=== PATIENT | female | born 1960 | race Caucasian/White ===

== ENCOUNTER 2018-05-11 01:10 | Outpatient (CLI) | payer BC, MEDICAID, SELFPAY ==
[2018-05-11 12:02] LABS: ALT 36 U/L (12-78); AST 23 U/L (15-37); Albumin 3.7 g/dL (3.4-5.0); Alkaline Phosphatase 81 U/L (46-116); Anion Gap 8.3 mmol/L (3-11); BUN 12 mg/dL (7-18); Bilirubin, Total 0.4 mg/dL (0.2-1.0); CO2 26.7 mmol/L (21.0-32.0); CREATININE 0.86 mg/dL (0.55-1.02); Calcium 8.9 mg/dL (8.5-10.1); Chloride 106 mmol/L (98-107); Cholesterol 217 mg/dL (50-200); Glucose 95 mg/dL (70-100); HDL Cholesterol 42 mg/dL (40-60); LDL CHOLESTEROL 130 mg/dL (<100); Potassium 4.1 mmol/L (3.5-5.1); Sodium 141 mmol/L (136-145); Total Protein 7.5 g/dL (6.4-8.2); Triglyceride 247 mg/dL (30-150); Vitamin B12 477 pg/mL (193-986)
== END 2018-05-11 01:30 ==
DX: Z00.00 Encounter for general adult medical examination without abnormal findings (principal); E53.8 Deficiency of other specified B group vitamins; F32.9 Major depressive disorder, single episode, unspecified; G43.909 Migraine, unspecified, not intractable, without status migrainosus; E78.2 Mixed hyperlipidemia
CPT/HCPCS: 36415; 80053; 80061; 83721; 82607

== ENCOUNTER 2018-08-16 07:18 | Day surgery (SDC) | payer BC, SELFPAY ==
--- NOTE | 2018-08-16 06:13 | COLE_ITS ---
Date of service: 08/16/18 Time of Service: 08:14 Colonoscopy Report Date of procedure: 08/16/18 Pre-op diagnosis general: Colon Cancer Screening Post-op diagnosis procedure note: other (Transverse polyp) Procedure: Colonoscopy Surgeon: Harriet Enciso Anesthesia proc note operative: other (General/ ASA 2/Sara Thompson, NAYA ) Estimated blood loss (mL): 3 Pathology: other (Transverse polyp) Complications: None Disposition: same day Indications: Mrs. Dominique is a pleasant 58 year old female seen in the office for a screening colonoscopy. This will be her first colonoscopy. She has no family history of colon cancer. Risks, benefits and complications have been reviewed. Complications include but are not limited to bleeding, pain, perforation, missed small lesion/polyp, sore throat, aspiration and adverse reaction to the me dications. Questions were entertained and answered to their satisfaction and they wished to proceed. No guarantees were given or implied. Prep: Miralax/Dulcolax Procedure Start Time: 08:14 Procedure End Time: 08:52 Retraction Time: 24 minutes Findings: One pedunculated polyp in the distal transverse colon Procedure Description: After informed consent was obtained the patient was taken to the procedure room and placed in a left decubitous position. Monitors were applied and a time out was done. The patients name, date of , procedure, allergies to medications and metal in their body was reviewed. The patient was then sedated. Once sedated and comfortable a rectal exam was done. External exam was normal. Internal exam revealed a normal sphincter tone and no palpable masses. The scope was then introduced and retro-flexed. No internal hemorrhoids, polyps or masses were identified. The scope was then advanced to the cecum without difficulty. The TI and appendiceal orifice were identified. The prep was adequate. The scope was then slowly retracted over 24 minutes back into the rectum. Polyps were removed in the distal transverse colon with a snare. No diverticulosis was noted. The scope was removed and the patient was woken up and taken back to Same day surgery in stable condition. The patient tolerated the procedure well and there were no immediate complications. Follow up: The patient should follow up in 3-5 years unless they develop changes in bowel habits or other new gastrointestinal complaints.
--- NOTE | 2018-08-16 06:13 | W.PM.DSUDISC ---
Discharge Plan Disposition Patient Disposition: HOME Condition: Good Discharge Details Reason For Visit: Colon Cancer Screening Attending Provider: Harriet Enciso Primary Care Provider: Arcelia Jones Home Meds and New Rx's Prescriptions: Continued Excedrin Migraine 1 EACH tablet 1 - 2 tab PO PRN RF: 0 fluoxetine [Prozac] 40 mg capsule 1 cap PO DAILY Qty: 90 RF: 3 Monoject Syringe 3 mL 21 gauge x 1 syringe 1 ea IM monthly Qty: 12 RF: 1 estradiol 1 mg tablet 1 mg PO DAILY Qty: 90 RF: 4 cyanocobalamin (vitamin B-12) 1,000 mcg/mL solution 1,000 mcg IM MONTHLY Qty: 3 RF: 4 Discontinued polyethylene glycol 3350 17 gram/dose powder 238 g PO ONCE Qty: 238 RF: 0 bisacodyl [Dulcolax (bisacodyl)] 5 mg tablet,delayed release (DR/EC) 5 mg PO ONCE Qty: 4 RF: 0 Discharge Instructions Instructions: Colonoscopy (DC), Colorectal Polyps (DC) Additional Instructions: Findings: One polyp Follow up: 3-5 years Please call if you develop: fevers >101.5 Nausea or Vomiting Abdominal pain that is not transient DAY SURGERY UNIT POST COLONOSCOPY INSTRUCTIONS 1. Because there will be medication in your system for the next 24 hours, you may feel a little sleepy. Your coordination will be affected. Therefore: a. Do not drive or operate dangerous equipment for 24 hours. b. Do not drink alcohol beverages for 24 hours (not even beer). c. Plan to go home and rest for the day. 2. Generally there are no restrictions on your activity after a day or so has gone by, but you may feel a bit fatigued for a few days. 3 After you arrive home you may have a light meal and return to a normal diet as you can tolerate it without feeling sick to your stomach. 4. After surgery, you may feel pain or discomfort. This should be only transient, but if it persists please contact your doctor. 5. If there are any questions regarding the findings of your procedure, please feel free to contact your doctor. 6. If you are unable to contact your doctor with a problem, contact the hospital at [phone]. 7. Continue all your regular medications unless directed otherwise. I understand the above instructions and have no questions. Signature of Patient or Responsible Adult Escort Date/Time Name of Responsible Adult Escort Signature of Nurse Date/Time Activity:: Activity as Tolerated Diet:: As Tolerated Discharge Orders Discharge Orders: Discharge Order (Routine); Ordered 08/16/18 Ordered By: Harriet Enciso DS: Diagnosis Discharge Diagnosis (1) S/P colonoscopy: Status: Acute (2) Colorectal polyps: Status: Acute
[2018-08-16 07:27] VITALS: BP 127/82; PULSE 71; RESP 16; TEMP 36.7; O2SAT 95
[2018-08-16] MEDS: Lactated Ringers 1,000 ML 80 ML IV (07:58)
--- NOTE | 2018-08-16 08:40 | BOWEL_PTH ---
PATIENT: Chantal Dominique LOC: [facility] U#:[id number] AGE/SX: 58/F ROOM: RE08/16/[address]: Harriet Enciso MD : 1960 BED: DIS: 08/16/2018 SPEC #: [id number] RECD: 08/16/18 12:43 STATUS: ANGELINA REQ #: [id number] JACEK: 08/16/18 08:[address]: Harriet Enciso DEPT: Surgical Specimen RECD BY: Kenia Springer ENTERED: 08/16/18 12:44 SP TYPE: Bowel OTHR DR: Arcelia Jones APRN Tissues: 1 - BIOPSY BOWEL Procedures: GROSS AND MICRO LEVEL 4 Comments: [id number]
[2018-08-16 09:31] VITALS: BP 124/76; PULSE 70; RESP 16; TEMP 36; O2SAT 96
== END 2018-08-16 10:30 | disposition home or self-care (01) ==
LOC: SUR 07:19
PROVIDERS: Visit Provider Surgery
PROC: 0DJD8ZZ Inspection of Lower Intestinal Tract, Via Natural or Artificial Opening Endoscopic (ICD-10-PCS; CPT 45378; principal; 2018-08-16 08:30)
DX: Z12.11 Encounter for screening for malignant neoplasm of colon (principal); K63.5 Polyp of colon
CPT/HCPCS: 45385; 88305

== ENCOUNTER 2019-04-27 01:20 | Outpatient (CLI) | payer BC, MEDICAID, SELFPAY ==
--- NOTE | 2019-04-27 07:49 | DI.MAMMO_ITS ---
EXAM: MAMMO SCREENING CLINICAL HISTORY: screening TECHNIQUE: Mammograms were interpreted according to the usual protocol including computer analysis w Qloud CAD system, tomosynthesis and C-view imaging. COMPARISON: . 2012 to 2018 FINDINGS: The breasts are composed of heterogeneously dense fibroglandular densities, Breast Density category C . No suspicious masses or suspicious microcalcifications are seen. No skin thickening or abnormal axillary lymph nodes are seen. There has been no significant change from prior exams. IMPRESSION: BIRADS Category 1, negative mammogram. Yearly screening mammography is recommended. BREAST DENSITY: The mammogram demonstrates the patient's breast tissue is dense. Dense breast tissue is very common and is not abnormal but dense breast tissue can make it harder to find cancer on a ma mmogram. Also, dense breast tissue may increase breast cancer risk. This information about the result of the mammogram report was provided to the patient to raise their awareness. Use this report when y ou speak with the patient about their risks for breast cancer, which includes their family history. A t that time, you may recommend additional screening tests (Ultrasound or MRI) as they might be useful based on their risk. A negative radiographic report should not delay biopsy if a dominant or clinically suspicious mass is present. Up to ten percent of cancers are not identified on mammography. A negative report may reinforce clinical impression. Adenosis and dense breasts may obscure an underlying neoplasm. False positive reports average 6 to 10%.
== END 2019-04-27 01:40 ==
DX: Z12.31 Encounter for screening mammogram for malignant neoplasm of breast (principal)
CPT/HCPCS: 77063; 77067

== ENCOUNTER 2020-02-08 01:59 | Outpatient (CLI) | payer BC, SELFPAY ==
[2020-02-09 15:30] LABS: SARS-CoV-2 RNA Not Detected (NotDetected); SARS-CoV-2 RNA Source Nasal/Nares
== END 2020-02-08 02:19 ==
PROVIDERS: Visit Provider Family Medicine
DX: R05 Cough (principal)
CPT/HCPCS: U0003

== ENCOUNTER 2020-03-06 03:08 | Outpatient (CLI) | payer BC, SELFPAY ==
[2020-03-06 20:29] LABS: COVID-19 RT-PCR UVMMC Result Negative (Negative)
== END 2020-03-06 03:28 ==
DX: Z20.828 Contact with and (suspected) exposure to other viral communicable diseases (principal)
CPT/HCPCS: U0003

== ENCOUNTER 2020-06-26 01:26 | Outpatient (CLI) | payer BC, SELFPAY ==
--- NOTE | 2020-06-26 11:19 | DI.MAMMO_ITS ---
EXAM: MG MAMMO SCREENING CLINICAL HISTORY: screening,Z12.39 TECHNIQUE: Bilateral full field digital CC and MLO mammographic images were obtained with 3D tomosyn thesis and utilizing computer aided detection (CAD). COMPARISON: Available for comparison. FINDINGS: Masses/Architectural Distortion: None seen. There is a biopsy clip again seen in the right breast. Microcalcifications: No suspicious pleomorphic-type are seen. Skin Thickening/Nipple Retraction: None. IMPRESSION: 1. No significant interval change with no specific features of malignancy noted. 2. Unless there is more urgent need, screening mammography is recommended, as per [employer] guidelines. BI-RADS Category 1 - Negative Breast Density - Category C - Heterogeneously dense Breast density category C or D implies that the patient has dense breast tissue. Dense breast tissue is very common and is not abnormal but dense breast tissue can make it harder to find cancer on a ma mmogram. Also, dense breast tissue may increase their breast cancer risk. This information about the result of the mammogram report was provided to the patient to raise their awareness. Use this report when you speak with the patient about their risks for breast cancer, which includes their family hist ory. At that time, you may recommend for more screening tests (Ultrasound or MRI) as they might be us eful based on their risk. A negative radiographic report should not delay biopsy if a dominant or clinically suspicious mass is present. Up to ten percent of cancers are not identified on mammography. A negative report may reinforce clinical impression. Adenosis and dense breasts may obscure an underlying neoplasm. False positive reports average 6 to 10%. Patient will receive a letter notifying them of these results.
== END 2020-06-26 01:46 ==
DX: Z12.31 Encounter for screening mammogram for malignant neoplasm of breast (principal)
CPT/HCPCS: 77063; 77067

== ENCOUNTER 2020-07-03 02:35 | Outpatient (CLI) | payer BC, SELFPAY ==
[2020-07-03 13:32] LABS: ALT 32 U/L (14-59); AST 23 U/L (15-37); Albumin 3.8 g/dL (3.4-5.0); Alkaline Phosphatase 78 U/L (46-116); Anion Gap 5.4 mmol/L (3-11); BUN 15 mg/dL (7-18); Bilirubin, Total 0.3 mg/dL (0.2-1.0); CO2 28.6 mmol/L (21.0-32.0); CREATININE 0.9 mg/dL (0.55-1.02); Calculated LDL 122 mg/dL (<100); Chloride 106 mmol/L (98-107); Cholesterol 226 mg/dL (<200); Glucose 99 mg/dL (74-106); HDL Cholesterol 37 mg/dL (40-60); Potassium 4.8 mmol/L (3.5-5.1); Sodium 140 mmol/L (136-145); Total Protein 7.7 g/dL (6.4-8.2); Triglyceride 335 mg/dL (<150); Vitamin B12 234 pg/mL (193-986)
== END 2020-07-03 02:36 | disposition home or self-care (01) ==
LOC: LOS 02:36
DX: Z00.00 Encounter for general adult medical examination without abnormal findings (principal); E78.5 Hyperlipidemia, unspecified; E53.8 Deficiency of other specified B group vitamins
CPT/HCPCS: 36415; 80053; 80061; 82607

== ENCOUNTER 2020-08-07 12:04 | Emergency (ER) | payer BC, SELFPAY ==
[2020-08-07 12:11] VITALS: BP 129/74; PULSE 69; RESP 18; TEMP 36.2; O2SAT 98
--- NOTE | 2020-08-07 12:26 | W.ED.GENAD ---
Discharge Plan Disposition Patient Disposition: HOME Condition: Stable Discharge Details Clinical Impression: Depression Primary Care Provider: Arcelia Jones ED Provider: Edwin Rico Home Meds and New Rx's Prescriptions: Continued multivitamin with iron Tablet 1 tab PO DAILY RF: 0 fluoxetine [Prozac] 40 mg capsule 80 mg PO DAILY Qty: 90 RF: 0 Excedrin Migraine 1 EACH tablet 1 - 2 tab PO PRN RF: 0 cyanocobalamin (vitamin B-12) 1,000 mcg/mL solution 1,000 mcg IM MONTHLY Qty: 3 RF: 4 estradiol 1 mg tablet 1 mg PO DAILY Qty: 90 RF: 4 (DME) Easy Touch SheathLock Syrg-Ndl 3 mL 25 gauge x 1 syringe See Rx Instructions .ROUTE .MEDSUPPLY Qty: 12 RF: 1 Discharge Instructions Instructions: Depression (ED) Additional Instructions: Followup with Dr Montelongo on Thursday at 11:20 am. Followup with [facility] daily as discussed with them. Return for any acute concerns. Medical Decision Making <Spike Jackson MD - Last Filed: 08/07/20 13:39> 60 yo female with hx of depression who had her fluoxetine increased from 40mg to 80mg by her pcp earlier this month for depression comes in with worsening depression. She states it started to worsen about 4 weeks ago and was due to some write ups that happened at work. She denies specific plans of self harm but has had thoughts of wanting to harm herself. HAsn't done anything to harm herself. Denies alcohol or drug use. She is speaking clearly, no focal motor deficits on exam, calm and cooperative though with flat affect. Suspect worsening depression and unlikely underlying medical cause such as endocrine or infectious etiology. Will obtain screening labs and if negative consult mental health blood work unremarkable, has not provided urine sample but is now medically clear to speak with mental health. She is eating in no distress on repeat exam. Differential Diagnosis Differential Diagnosis: depression, sucidial thoughts Lab Data Lab results reviewed: Yes I reviewed the patient's lab results. ECG Data Attestation: I personally reviewed and interpreted this ECG (s) as follows: Prior ECG tracings: not available for review Interpretation: sinus rhythm, rate of 63, no acute st t wave ischemic findings <Edwin Rico MD - Last Filed: 08/07/20 16:32> Received signout from Dr. Jackson. Patient evaluated by crisis team. She initially consider pursuing voluntary inpatient treatment. Subsequently a plan for outpatient safety was made with the patient, her roommate, and the mental health worker. Roommate will hold the patient's medications and give her 1 day at a time dosing. Patient will follow up with mental health services daily. She will follow-up with Dr. Montelongo on Thursday 11:20 AM. She is stable and appropriate for discharge to home. Lab Data Lab results reviewed: Yes I reviewed the patient's lab results. Labs: Laboratory Results - last 24 hr 08/07/20 08/07/20 08/07/20 12:30 12:30 13:12 WBC 5.91 RBC 4.77 Hgb 13.9 Hct 39.6 MCV 83.0 MCH 29.1 MCHC 35.1 RDW 12.2 Plt Count 217 MPV 9.6 Immature Gran % 0.2 Neutrophils % 58.6 Lymphocytes % 27.6 Monocytes % 13.4 Eosinophils % 0.0 Basophils % 0.2 Nucleated RBC % 0 Absolute Neutrophils 3.47 Absolute Lymphocytes 1.63 Absolute Monocytes 0.79 Absolute Eosinophils 0.00 Absolute Basophils 0.01 Sodium 140 Potassium 3.9 Chloride 104 Carbon Dioxide 25.7 Anion Gap 10.3 BUN 11 Creatinine 0.9 Estimated GFR/1.73 m2 >= 60.00 Glucose 88 Calcium 9.1 Total Bilirubin 0.3 AST 27 ALT 30 Alkaline Phosphatase 81 Total Protein 8.2 Albumin 3.8 TSH 2.62 Urine Color Urine Clarity Urine pH Ur Specific [place] Urine Protein Urine Ketones Urine Blood Urine Nitrite Urine Bilirubin Urine Urobilinogen Ur Leukocyte Esterase Urine Glucose Urine Opiates Screen Negative Urine Methadone Screen Negative Acetaminophen < 2 Ur Barbiturates Screen Negative Ur Tricyclics Screen Negative Ur Amphetamines Screen Negative U Benzodiazepines Scrn Negative Urine Cocaine Screen Negative Ur THC Screen Negative Ethyl Alcohol < 3.0 COVID-19 Source SARS-CoV-2 (PCR) 08/07/20 08/07/20 13:12 13:17 WBC RBC Hgb Hct MCV MCH MCHC RDW Plt Count MPV Immature Gran % Neutrophils % Lymphocytes % Monocytes % Eosinophils % Basophils % Nucleated RBC % Absolute Neutrophils Absolute Lymphocytes Absolute Monocytes Absolute Eosinophils Absolute Basophils Sodium Potassium Chloride Carbon Dioxide Anion Gap BUN Creatinine Estimated GFR/1.73 m2 Glucose Calcium Total Bilirubin AST ALT Alkaline Phosphatase Total Protein Albumin TSH Urine Color Yellow Urine Clarity Clear Urine pH 5.5 Ur Specific [place] >= 1.030 H Urine Protein Negative Urine Ketones 15 H Urine Blood Negative Urine Nitrite Negative Urine Bilirubin Negative Urine Urobilinogen 0.2 Ur Leukocyte Esterase Negative Urine Glucose Negative Urine Opiates Screen Urine Methadone Screen Acetaminophen Ur Barbiturates Screen Ur Tricyclics Screen Ur Amphetamines Screen U Benzodiazepines Scrn Urine Cocaine Screen Ur THC Screen Ethyl Alcohol COVID-19 Source Nasal/nares SARS-CoV-2 (PCR) Negative HPI <Spike Jackson MD - Last Filed: 08/07/20 13:39> General Mode of arrival: ambulatory. Date/Time Provider Initiated Documentation: 08/07/20 12:14. Limitations to Documentation: no limitations. Information obtained by: patient. History of Present Illness 60 year old F presents to the emergency department with the chief complaint of depressed, described as moderate, Patient started experiencing this week(s) (4) and it has been constant. No relieving factors improve symptom(s), No exacerbating factors reported . Patient did receive the following treatments prior to arrival, none Related Data Home Medications Medication Instructions Recorded Confirmed Excedrin Migraine 1 - 2 tab PO PRN 04/06/14 08/07/20 multivitamin with iron 1 tab PO DAILY 06/06/19 08/07/20 cyanocobalamin (vitamin B-12) 1,000 mcg IM MONTHLY #3 ml 05/25/20 08/07/20 1,000 mcg/mL injection solution estradiol 1 mg tablet 1 mg PO DAILY #90 tab 05/25/20 08/07/20 syringe with needle, safety 3 mL #12 each 05/25/20 06/11/20 25 gauge x 1 fluoxetine 40 mg capsule 80 mg PO DAILY #90 cap 07/18/20 08/07/20 Previous Rx's Medication Instructions Recorded cyanocobalamin (vitamin B-12) 1,000 mcg IM MONTHLY #3 ml 05/25/20 1,000 mcg/mL injection solution estradiol 1 mg tablet 1 mg PO DAILY #90 tab 05/25/20 syringe with needle, safety 3 mL #12 each 05/25/20 25 gauge x 1 fluoxetine 40 mg capsule 80 mg PO DAILY #90 cap 07/18/20 Allergies Allergy/AdvReac Type Severity Reaction Status Date / Time No Known Allergies Allergy Verified 08/07/20 12:13 General Stated Complaint: PsychEval RUPERTO: 2 Review of Systems <Spike Jackson MD - Last Filed: 08/07/20 13:39> All systems reviewed & are unremarkable except as noted in HPI and below Constitutional Constitutional: Denies chills, Denies fever(s) and Denies weakness Cardiovascular Cardiovascular: Denies chest pain and Denies dyspnea Respiratory Respiratory: Denies cough and Denies dyspnea Gastrointestinal Gastrointestinal: Denies abdominal pain, Denies nausea and Denies vomiting Musculoskeletal Musculoskeletal: Denies joint swelling Neurologic Neurologic: Denies weakness PFS <Spike Jackson MD - Last Filed: 08/07/20 13:39> Medical History (Updated 08/07/20 @ 12:31 by Spike Jackson MD) Allergic rhinitis Colorectal polyps (~08/16/18) Depression Depressive disorder Edema LE edema Gender identity disorder (07/19/13) 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 Father , 74 Diabetes Essential hypertension Neoplasm SYSTEMIC Stroke During surgery for AAA Brother No problems noted. Maternal Grandfather , 84 Essential hypertension Heart disease Paternal Grandfather Lung cancer Maternal Grandmother , 76 Heart disease Paternal Grandmother Heart disease ?? Son Asthma Maternal Aunt Neoplasm Asthma Social History Smoking/Tobacco Use Status: Never Smoking risk assessment performed?: Yes Alcohol Intake: current Alcohol Intake frequency: holidays/special occasions only Alcohol type: wine Drug use: Never Substance use type: does not use Caregiver/Support person: No Household members: none Communication Needs: None Do you need help understanding health information?: Rarely current occupation: CAREGIVER Pets and animals: Yes Pets and animals: cat(s) Sexually active: No Do you think of yourself as: lesbian/horne/homosexual Current gender identity: female What is your relationship status?: How often do you talk on the phone with friends or family?: decline to answer How often do you get together with friends or relatives?: decline to answer How often do you attend jewish or scientologist services?: decline to answer Do you belong to any clubs or organized social groups?: decline to answer Panel score (0-1 are the most socially isolated patients): 0 What type of physical activity do you participate in: walking Duration: < 15 minutes/day Frequency: 3-4 times per week Saskia/Scientology: Other Special saskia needs: No Seatbelt use: always Helmet use: Yes Helmet use: never Drive intox or ride 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 Do you feel safe at home: Yes Do you feel safe in your relationship?: Yes Exam <Spike Jackson MD - Last Filed: 08/07/20 13:39> Const General: no acute distress Orientation: alert HENMT Head: normal to inspection Ears: external ears normal General nose exam: external nose normal Mouth: moist mucous membranes Eyes General: appearance normal, both eyes and all related structures Neck Neck: normal visual inspection Resp Effort & Inspection: normal respiratory effort and able to speak in complete sentences Cardio Rate: regular rate Skin General skin exam: no rashes or lesions noted Neuro General: patient alert and patient oriented x3 Extrem General: normal to inspection Psych Appearance: grossly normal Course <Spike Jackson MD - Last Filed: 08/07/20 13:39> Vital Signs Vital signs: Vital Signs Temperature 36.2 C L 08/07/20 12:11 Pulse 69 08/07/20 12:11 Respiratory Rate 18 08/07/20 12:11 Blood Pressure 129/74 08/07/20 12:11 Pulse Oximetry 98 08/07/20 12:11 Temperature 36.2 C L 08/07/20 12:11 Temperature Source Skin 08/07/20 12:11 Pulse 69 08/07/20 12:11 Respiratory Rate 18 08/07/20 12:11 Blood Pressure 129/74 08/07/20 12:11 Blood Pressure Position Sitting 08/07/20 12:11 Pulse Oximetry 98 08/07/20 12:11 Oxygen Delivery Method Room Air 08/07/20 12:11 Oxygen Flow Rate 0 08/07/20 12:11 Pain Level 0 08/07/20 12:11 Sign Out <Spike Jackson MD - Last Filed: 08/07/20 13:39> Sign Out Data: Sign Out Comment: Depression with SI, awaiting mental health evaluation Last updated by Spike Jackson MD at 08/07/20 14:24
--- NOTE | 2020-08-07 12:45 | RT.EKG_ITS ---
APPROVED REPORT Exam: Resting ECG Reason for Exam: medical screening Patient Location: E HR:63 bpm ECG Measurements Heart Rate 63 AXIS MA 180 P 55 QRSd 112 QRS 9 QT 459 T 27 QTc 470 Conclusion Sinus rhythm...normal P axis, V-rate 60- 99
[2020-08-07 12:56] LABS: Abs Immature Grans 0.01 10^3/uL (0.0-0.06); Absolute Basophil Count 0.01 10^3/uL (0.0-0.2); Absolute Lymphocyte Count 1.63 10^3/uL (1.2-3.4); Absolute Monocyte Count 0.79 10^3/uL (0.1-0.8); Absolute Neutrophil Count 3.47 10^3/uL (1.2-6.7); Basophils % 0.2; HCT 39.6 % (36.0-46.0); HGB 13.9 g/dL (11.2-15.7); Immature Grans % 0.2; Lymphocytes % 27.6; MCH 29.1 pg (27.0-33.0); MCHC 35.1 % (32.0-36.0); MPV 9.6 fL (8.0-11.0); Monocytes % 13.4; Neutrophils % 58.6; Nucleated RBC 0 %; Platelet Count 217 10^3/uL (130-400); RBC 4.77 10^6/uL (3.93-5.22); RDW 12.2 % (11.7-14.6); RDW-SD 37.3 fL; WBC 5.91 10^3/uL (4.4-10.8)
[2020-08-07 13:19] LABS: ALT 30 U/L (14-59); AST 27 U/L (15-37); Albumin 3.8 g/dL (3.4-5.0); Alkaline Phosphatase 81 U/L (46-116); Anion Gap 10.3 mmol/L (3-11); BUN 11 mg/dL (7-18); Bilirubin, Total 0.3 mg/dL (0.2-1.0); CO2 25.7 mmol/L (21.0-32.0); CREATININE 0.9 mg/dL (0.55-1.02); Calcium 9.1 mg/dL (8.5-10.1); Chloride 104 mmol/L (98-107); Glucose 88 mg/dL (74-106); Potassium 3.9 mmol/L (3.5-5.1); Sodium 140 mmol/L (136-145); TSH (W/Ref FT4) 2.62 uIU/mL (0.36-3.74); Total Protein 8.2 g/dL (6.4-8.2)
[2020-08-07 13:30] LABS: Source Nasal/Nares
[2020-08-07 13:35] LABS: Acetaminophen < 2 ug/mL (10-30); ETHANOL BLOOD < 3.0 mg/dL (<3)
[2020-08-07 13:38] LABS: *AMPHETAMINES SCREEN URINE Negative (Negative); *BARBITURATES SCREEN URINE Negative (Negative); *BENZODIAZEPINES SCREEN URINE Negative (Negative); Cannabinoids THC Negative (Negative); Cocaine Screen,Urine Negative (Negative); METHADONE URINE SCREEN Negative (Negative); OPIATES URINE SCREEN Negative (Negative)
[2020-08-07 13:39] LABS: Tricyclic Antidepressants Negative (Negative)
[2020-08-07 13:49] LABS: Bilirubin Negative (Negative); Blood Negative (Negative); Clarity Clear (Clear); Glucose Negative (Negative); Ketones 15 mg/dL (Negative); Leukocyte Esterase Negative (Negative); Nitrite Negative (Negative); Specific Gravity >= 1.030 (1.005-1.025); Urobilinogen 0.2 EU/dL (Up TO 0.2); pH 5.5 (5-8)
[2020-08-07 15:03] LABS: COVID-19 PCR Negative (Negative)
--- NOTE | 2020-08-07 16:30 | PDOC.MHCN ---
Date of service: 08/07/20 Time of Service: 16:30 Mental Health Crisis Note Presenting Issue How did you arrive at the ED and why did you come: Pt arrived today on her own due to increase in symptoms of depression and SI. Precipitating Factors Pt denied SI however, has been researching ways. She reported in 2013 she had gone to a store and purchased all she needed to, to cook up a toxic gas as the means to end her life by suicide. She self reported her risk level this am at a 8/10 and currently a 6/10. No delusions are observed. Disposition BEHAVIOR: Pt is cooperative and engaged. She is unsure of her protective factors and is seeking to get back in counseling. EYE CONTACT: Good MOOD: Depressed Pt reported I don't know. AFFECT: Flat and tearful. APPETITE: Pt reported that she does not recognize when she is hungry and then when she is really hungry she munches on junk foods. This is abnormal for her. SLEEP(trouble falling/staying asleep: Pt reported that she wants to sleep all the time and that she is sleeping more than usual. Plan Pt will do daily check in calls with [facility] until directed not to. She will turn over all medications including OTC to her roommate who will dole them out 1 day at a time. Roommate will also do daily check ins with Pt as she lives with her. She will call counselors in the community to seek a new counselor. This clinician will also do an in house referral for counseling at [facility]. This clinician outreached to Pt's PCP office and set up a new appointment for Thursday 08/10 @ 11:20am to meet with Dr. Fong regarding her medications. Signature Clinician's Name/Title: Lydia Ortiz MS, [facility] Emergency Services Clinician, [facility]
[2020-08-07 16:38] VITALS: BP 132/75; PULSE 89; RESP 16; TEMP 36.9; O2SAT 97
--- NOTE | 2020-08-07 16:44 | NUR.NOTE ---
Nursing Note: ESPINOZA CALLED TO LET HER KNOW PT HAS LEFT TO GO HOME FOR TIME REFERENCE.
--- NOTE | 2020-08-07 16:44 | PDOC.ERCMPRO ---
- If Service Date Differs Date of service: 08/07/20 Time of Service: 16:44 Care Management Progress Note Chantal is a 60 year old female who presents in the ED for passive suicidal ideation. She has a history of depression, which has been worsening over the last few weeks due to issues at work. Chantal does not currently have a therapist and she has never been psychiatrically hospitalized. Chantal is evaluated by Lydia [facility] crisis screener. She is able to enter into a safety plan, so she is being discharged home. Chantal will call [facility] daily for check-in calls. She will follow up with her PCP on Thursday at 11:20 am as scheduled. She will give all of her medications to her roommate, Angelique, for safeguarding. Angelique will dispense the medication as prescribed. Lydia also provides Chantal with a list of private therapists and Chantal will call the therapists on the list until she finds one able to accept her as a client. Chantal drove herself to the ED and is deemed safe to drive herself back home by [facility].
== END 2020-08-07 16:41 | disposition home or self-care (01) ==
PROVIDERS: Emergency Medicine; Emergency Provider Emergency Medicine
DX: F32.9 Major depressive disorder, single episode, unspecified (principal)
CPT/HCPCS: 36415; 80053; 80307; 87635; 93005; 99285; 80320; 80329; 81003; 84443; 85025; 93010; 99283

== ENCOUNTER 2021-09-10 02:56 | Outpatient (CLI) | payer MEDICAID, SELFPAY ==
[2021-09-10 13:34] LABS: ALT 32 U/L (14-59); AST 24 U/L (15-37); Albumin 3.8 g/dL (3.4-5.0); Alkaline Phosphatase 82 U/L (46-116); Anion Gap 10.4 mmol/L (3-11); BUN 12 mg/dL (7-18); Bilirubin, Total 0.5 mg/dL (0.2-1.0); CO2 22.6 mmol/L (21.0-32.0); Calcium 8.8 mg/dL (8.5-10.1); Calculated LDL 117 mg/dL (<100); Chloride 104 mmol/L (98-107); Cholesterol 227 mg/dL (<200); Estimated GFR 56.56 (mL/min/1.73m2); Glucose 106 mg/dL (74-106); HDL Cholesterol 38 mg/dL (40-60); Potassium 3.7 mmol/L (3.5-5.1); Sodium 137 mmol/L (136-145); Total Protein 7.9 g/dL (6.4-8.2); Triglyceride 364 mg/dL (<150)
[2021-09-12 12:49] LABS: TB Interpretation Negative (Negative); TB2 Ag minus Nil 0.01 IU/mL
== END 2021-09-10 02:57 | disposition home or self-care (01) ==
LOC: LOS 02:56
DX: Z00.00 Encounter for general adult medical examination without abnormal findings (principal); E78.5 Hyperlipidemia, unspecified; R63.8 Other symptoms and signs concerning food and fluid intake; R53.83 Other fatigue; F64.9 Gender identity disorder, unspecified; R41.3 Other amnesia; F32.9 Major depressive disorder, single episode, unspecified; Z11.1 Encounter for screening for respiratory tuberculosis
CPT/HCPCS: 36415; 80053; 80061; 86480

== ENCOUNTER 2021-12-13 01:23 | Outpatient (CLI) | payer MEDICAID, SELFPAY ==
[2021-12-13 13:03] LABS: HGB 14.5 g/dL (11.2-15.7); MCH 28.1 pg (27.0-33.0); MCHC 33.7 % (32.0-36.0); MCV 83 fL (80-95); MPV 10.3 fL (8.0-11.0); Platelet Count 185 10^3/uL (130-400); RBC 5.16 10^6/uL (3.93-5.22); RDW 12.5 % (11.7-14.6); WBC 4.56 10^3/uL (4.4-10.8)
[2021-12-13 14:01] LABS: ALT 37 U/L (14-59); AST 18 U/L (15-37); Albumin 3.9 g/dL (3.4-5.0); Alkaline Phosphatase 84 U/L (46-116); Anion Gap 9.4 mmol/L (3-11); BUN 10 mg/dL (7-18); Bilirubin, Total 0.5 mg/dL (0.2-1.0); CO2 23.6 mmol/L (21.0-32.0); Calcium 9.1 mg/dL (8.5-10.1); Chloride 105 mmol/L (98-107); Estimated GFR 64.49 (mL/min/1.73m2); Glucose 112 mg/dL (74-106); Potassium 3.9 mmol/L (3.5-5.1); Sodium 138 mmol/L (136-145); TSH (W/Ref FT4) 1.26 uIU/mL (0.36-3.74); Total Protein 7.7 g/dL (6.4-8.2); Vitamin B12 301 pg/mL (193-986)
== END 2021-12-13 01:24 | disposition home or self-care (01) ==
LOC: LOS 01:23
PROVIDERS: Visit Provider Nurse Practitioner Family
DX: R41.3 Other amnesia (principal)
CPT/HCPCS: 36415; 80053; 85027; 82607; 84443

== ENCOUNTER → 2023-04-24 01:19 | Outpatient (CLI) | payer MEDICAID, SELFPAY ==
--- NOTE | 2023-04-24 12:20 | DI.MAMMO_ITS ---
Exam(s) MAMMO SCREENING EXAM: MAMMO SCREENING CLINICAL HISTORY: screening,z12.39. TECHNIQUE: Bilateral full field digital CC and MLO mammographic images were obtained with 3D tomosyn thesis and utilizing computer aided detection (CAD). COMPARISON: Prior mammograms were reviewed. FINDINGS: There has been no significant change in the appearance and distribution of the fibroglandular tissue. There are no new findings in the immediate vicinity of the biopsy marker clip in the right breast. Asymmetric tissue laterally in the right breast on the CC view is unchanged prior studies. There are no new spiculated masses nor malignant appearing microcalcification groups. There is no significant architectural distortion nor skin thickening-retraction. IMPRESSION: No radiographic evidence of malignancy. BI-RADS Category 1 - Negative Breast Density - Category C - Heterogeneously dense Breast density Category C or D implies that the patient has dense breast tissue. Dense breast tissue can make it harder to find cancer on a mammogram. Dense breast tissue is also associated with an incr eased risk of breast cancer. This information about the result of the mammogram report was provided to the patient to raise their awareness. Use this report when you speak with the patient about their risks for breast cancer, which includes their family history. At that time, you may recommend additional screening tests (Ultrasoun d or MRI) as these tests may add significant information. A negative radiographic report should not delay biopsy if a dominant or clinically suspicious mass is present. Up to ten percent of cancers are not identified on mammography. A negative report may reinforce clinical impression. Adenosis and dense breasts may obscure an underlying neoplasm. False positive reports average 6 to 10%. Patient will receive a letter notifying them of these results.
== END ==
PROVIDERS: PCP Nurse Practitioner Family; Visit Provider Nurse Practitioner Family
DX: Z12.31 Encounter for screening mammogram for malignant neoplasm of breast (principal); R92.323 Mammographic fibroglandular density, bilateral breasts
CPT/HCPCS: 77063; 77067

== ENCOUNTER 2024-04-08 18:24 | Emergency (ER) | payer MEDICAID, SELFPAY ==
[2024-04-08] VITALS (28 sets, daily range): BP systolic 121–142; BP diastolic 73–87; PULSE 51–58; RESP 11–19; TEMP 36.4; O2SAT 99–100
[2024-04-08] MEDS: cefTRIAXone 1 GM/50 ML BAG IVPB (18:45)
[2024-04-08 18:54] LABS: Abs Immature Grans 0.02 10^3/uL (0.0-0.06); Absolute Basophil Count 0.01 10^3/uL (0.0-0.2); Absolute Eosinophil Count 0.03 10^3/uL (0.0-0.7); Absolute Lymphocyte Count 1.33 10^3/uL (1.2-3.4); Absolute Monocyte Count 0.67 10^3/uL (0.1-0.8); Absolute Neutrophil Count 3.43 10^3/uL (1.2-6.7); Basophils % 0.2 %; Eosinophils % 0.5 %; HCT 40.7 % (36.0-46.0); HGB 14.4 g/dL (11.2-15.7); Immature Grans % 0.4 %; Lymphocytes % 24.2 %; MCH 29.1 pg (27.0-33.0); MCHC 35.4 % (32.0-36.0); MCV 82 fL (80-95); MPV 9.6 fL (8.0-11.0); Monocytes % 12.2 %; Neutrophils % 62.5 %; Platelet Count 172 10^3/uL (130-400); RBC 4.94 10^6/uL (3.93-5.22); RDW 12.1 % (11.7-14.6); RDW-SD 36.4 fL; WBC 5.49 10^3/uL (4.4-10.8)
--- NOTE | 2024-04-08 19:02 | DI.CT_ITS ---
Exam(s) CT ORBITS WO CT HEAD CERV SPINE FACIAL WO EXAM: CT HEAD CERV SPINE FACIAL WO CLINICAL HISTORY: Penetrating inj. lateral to L. eye, c/f open globe. TECHNIQUE: Imaging Protocol: Axial computed tomography images with coronal and sagittal reformatted images were created and reviewed COMPARISON: CT CT ORBITS WO from 04/08/2024 FINDINGS: CT Head: Ventricles and Extra axial spaces: Normal in size and morphology for the patient's age. Hemorrhage: None. Cerebral parenchyma: No evidence of acute hemorrhage or acute infarct. Midline shift: None. Brainstem/Cerebellum: Normal. Calvarium: Normal. Visualized Paranasal sinuses/Mastoids: Clear. Soft Tissues: Unremarkable. CT Face: Facial Bones: Fracture of the inferior wall of the left orbit with some herniation of fat into the l eft maxillary sinus. The defect in the inferior orbital wall is approximately 10 millimeters. Sinuses and Mastoids: Mucosal thickening of both maxillary sinuses. Globes, extraocular muscles, optic nerves and retrobulbar fat: Linear foreign body seen entering the orbit lateral to the globe. Air within the lateral and inferior portion of the globe. The globe ap pears intact. There is no evidence of entrapment of the inferior rectus muscle. Upper aerodigestive tract: Normal. Mandible and bilateral temporomandibular joints: Normal. Soft tissues: Soft tissue swelling over the left side of the mandible and left maxillary region. Sof t tissue swelling around left orbit. CT Cervical Spine: Bones: No acute fracture or subluxation. Degenerative disc changes at C6-7. Soft Tissues: Unremarkable. Lung Apices: Clear. IMPRESSION: 1. No acute intracranial process. 2. No acute fracture or subluxation in the cervical spine. 3. Linear foreign body seen at the lateral aspect of the orbit with surrounding air but no hematoma. The globe appears intact. Fracture of the inferior wall of the left orbit with herniation of some f at but no muscle entrapment. 4. Findings called to TETO Moreno provider. RADIATION DOSE DELIVERED: Total DLP DATA REPOSITORY: All CT scans at this facility are submitted to the National Radiology Data Registry (NRDR) Dose Index Registry (DIR) with the [employer] (A[employer]). RADIATION OPTIMIZATION: All CT scans at this facility use at least one of these dose optimization te chniques: automated exposure control; mA and/or kV adjustment per patient size (includes targeted exa ms where dose is matched to clinical indication); or iterative reconstruction.
--- NOTE | 2024-04-08 19:08 | DI.RAD_ITS ---
Exam(s) XR PELVIS AP EXAM: XR PELVIS AP CLINICAL HISTORY: fall. TECHNIQUE: 2D digital imaging was performed. Single AP view. COMPARISON: No exams were available for comparison FINDINGS: The exam is limited by under penetration. BONES: No acute fracture is present. JOINTS: No dislocation present. No joint space narrowing is present. The SI joints and pubic symphy sis are not widened. SOFT TISSUE: Normal. IMPRESSION: Limited exam. No acute abnormality. DATA REPOSITORY: RADIATION DOSE DELIVERED:
--- NOTE | 2024-04-08 19:08 | DI.RAD_ITS ---
Exam(s) XR CHEST 1V IN DI DEPT EXAM: XR CHEST 1V IN DI DEPT CLINICAL HISTORY: trauma TECHNIQUE: 2D digital imaging was performed. COMPARISON: No exams were available for comparison FINDINGS: Exam is limited by under penetration and semi-erect positioning.. Leads overlie the chest. LUNGS: Clear. No pleural abnormality seen. HEART: Normal size. AORTA: Normal diameter. BONES: Unremarkable for age. Soft tissues: Unremarkable. IMPRESSION: No acute findings. DATA REPOSITORY: RADIATION DOSE DELIVERED:
[2024-04-08 19:17] LABS: ALT 23 U/L (14-59); AST 16 U/L (15-37); Albumin 3.4 g/dL (3.4-5.0); Alkaline Phosphatase 79 U/L (46-116); Anion Gap 10.3 mmol/L (3-11); BUN 12 mg/dL (7-18); Bilirubin, Total 0.32 mg/dL (0.2-1.0); CO2 23.7 mmol/L (21.0-32.0); Calcium 8.8 mg/dL (8.5-10.1); Chloride 105 mmol/L (98-107); Glucose 118 mg/dL (74-106); Potassium 3.5 mmol/L (3.5-5.1); Sodium 139 mmol/L (136-145); Total Protein 7.1 g/dL (6.4-8.2)
--- NOTE | 2024-04-08 20:11 | W.ED.GENAD ---
Discharge Plan Disposition Patient Disposition: Transfer-Acute Inpatient Care Specific Acute Inpt Facility: [facility] Discharge Details Clinical Impression: Foreign body behind the eye, Trauma Primary Care Provider: Antony Hernandez ED Provider: Kenia Villatoro Home Meds and New Rx's Prescriptions: Continued fluoxetine 10 mg capsule 10 mg PO DAILY Qty: 90 4RF fluoxetine [Prozac] 40 mg capsule 40 mg PO DAILY Qty: 90 4RF aripiprazole 2 mg tablet 2 mg PO DAILY Qty: 90 4RF Excedrin Migraine 1 EACH tablet 1 - 2 tab PO PRN Rx Instructions: at onset of migraine cyanocobalamin (vitamin B-12) 1,000 mcg/mL solution 1,000 mcg IM MONTHLY Qty: 3 4RF Rx Instructions: single dose vials estradiol 1 mg tablet See Rx Instructions .ROUTE .COMPLEX Qty: 28 12RF Dose Instruction: TAKE 1 TABLET BY MOUTH DAILY Rx Instructions: TAKE 1 TABLET BY MOUTH DAILY (DME) Easy Touch SheathLock Syrg-Ndl 3 mL 25 gauge x 1 syringe See Rx Instructions .ROUTE .MEDSUPPLY Qty: 12 1RF Rx Instructions: As directed buspirone 15 mg tablet 15 mg PO BID Qty: 180 4RF Discharge Data Discharge Date/Time-TO BE ENTERED AT DEPARTURE: 04/08/24 21:22 HPI General Date/Time Provider Initiated Documentation: 04/08/24 18:27. HPI Narrative: This male transitioning to female presents with report of fall down 2 steps, landing on her face. She fell on top of some refrigerator drawers there at the bottom of the stairs and a piece of the plexiglass penetrated her face. EMS was called and splinted the plexiglass region around the orbit. Patient did not reportedly lose consciousness and she is otherwise reportedly healthy without history of coagulopathy. Patient reports that her tetanus was updated last year. She denies any nausea vomiting or significant pain. She states she has some mild discomfort to the left side of her face. She denies any change in her vision. She denies any neck pain or chest pain. She denies any current dizziness abdominal pain. For evaluation she states this is simply a mechanical fall. Related Data Home Medications ?Medication ?Instructions ?Recorded ?Confirmed [id number] 250 1 - 2 tab PO PRN 04/06/14 04/08/24 mg-250 mg-65 mg tablet (Excedrin Migraine) cyanocobalamin (vitamin B-12) 1,000 mcg IM MONTHLY #3 mL 06/12/23 04/08/24 1,000 mcg/mL injection solution estradiol 1 mg tablet See Rx Instructions .Route 06/19/23 04/08/24 .COMPLEX #28 tabs syringe with needle, safety 3 mL #12 ea 10/27/23 04/08/24 25 gauge x 1 (Easy Touch SheathLock Syringe with Needle) aripiprazole 2 mg tablet 2 mg PO DAILY #90 tabs 02/05/24 04/08/24 fluoxetine 10 mg capsule 10 mg PO DAILY added to current 02/05/24 04/08/24 40mg to = 50mg QD by Felix Covingotn #90 caps fluoxetine 40 mg capsule (Prozac) 40 mg PO DAILY #90 caps 02/05/24 04/08/24 buspirone 15 mg tablet 15 mg PO BID #180 tabs 03/22/24 04/08/24 Previous Rx's ?Medication ?Instructions ?Recorded cyanocobalamin (vitamin B-12) 1,000 mcg IM MONTHLY #3 mL 06/12/23 1,000 mcg/mL injection solution estradiol 1 mg tablet See Rx Instructions .Route 06/19/23 .COMPLEX #28 tabs syringe with needle, safety 3 mL #12 ea 10/27/23 25 gauge x 1 (Easy Touch SheathLock Syringe with Needle) aripiprazole 2 mg tablet 2 mg PO DAILY #90 tabs 02/05/24 fluoxetine 10 mg capsule 10 mg PO DAILY added to current 02/05/24 40mg to = 50mg QD by Felix Covington #90 caps fluoxetine 40 mg capsule (Prozac) 40 mg PO DAILY #90 caps 02/05/24 buspirone 15 mg tablet 15 mg PO BID #180 tabs 03/22/24 Allergies Allergy/AdvReac Type Severity Reaction Status Date / Time No Known Allergies Allergy Verified 04/08/24 18:29 General Stated Complaint: Trauma RUPERTO: 2 Exam Narrative Exam Narrative: Alert and oriented 63-year-old female in no acute distress, pupils equal round reactive to light and accommodation, extraocular muscles deferred secondary to trauma adjacent to the lateral rectus muscle, visual acuity intact, no proptosis, no significant bleeding periorbitally, no hemotympanum, no sinus tenderness, oropharynx patent, uvula midline, abrasions to chin, no cervical spine tenderness or visible sign of trauma, no visible sign of trauma to chest, lungs clear to auscultation, cardiac rate rhythm regular, no abdominal tenderness or visible sign of trauma, no evidence of trauma to the pelvic region or groin, able to follow basic commands, GCS 15, alert and oriented x 4, sensation intact distally, no vomiting, abrasions noted to left hand on the dorsal aspect Course Vital Signs Vital signs: Vital Signs Temperature 36.4 C L 04/08/24 18:34 Pulse 55 L 04/08/24 18:34 Respiratory Rate 14 04/08/24 18:34 Blood Pressure 139/74 04/08/24 18:34 Pulse Oximetry 100 04/08/24 18:34 Temperature 36.4 C L 04/08/24 18:34 Temperature Source Oral 04/08/24 18:34 Pulse 53 L 04/08/24 19:46 Pulse 53 L 04/08/24 19:46 Respiratory Rate 14 04/08/24 19:46 Respiratory Effort Normal, Non-Labored 04/08/24 19:08 Respiratory Depth Normal 04/08/24 19:08 Respiratory Pattern Normal 04/08/24 19:08 Blood Pressure 121/83 04/08/24 19:46 Blood Pressure Mean 95 04/08/24 19:46 Pulse Oximetry 100 04/08/24 19:46 Oxygen Delivery Method Room Air 04/08/24 18:34 Oxygen Flow Rate 0 04/08/24 18:34 Pain Level 0 04/08/24 19:08 Lab/Test Results Lab/Test Results: Laboratory Tests Range/Units 04/08/24 18:40 WBC (4.4-10.8) 10^3/uL 5.49 RBC (3.93-5.22) 10^6/uL 4.94 Hgb (11.2-15.7) g/dL 14.4 Hct (36.0-46.0) % 40.7 MCV (80-95) fL 82 MCH (27.0-33.0) pg 29.1 MCHC (32.0-36.0) % 35.4 RDW (11.7-14.6) % 12.1 Plt Count (130-400) 10^3/uL 172 MPV (8.0-11.0) fL 9.6 Immature Gran % % 0.4 Neutrophils % % 62.5 Lymphocytes % % 24.2 Monocytes % % 12.2 Eosinophils % % 0.5 Basophils % % 0.2 Nucleated RBC % (0.0-0.3) % 0.0 Absolute Neutrophils (1.2-6.7) 10^3/uL 3.43 Absolute Lymphocytes (1.2-3.4) 10^3/uL 1.33 Absolute Monocytes (0.1-0.8) 10^3/uL 0.67 Absolute Eosinophils (0.0-0.7) 10^3/uL 0.03 Absolute Basophils (0.0-0.2) 10^3/uL 0.01 Sodium (136-145) mmol/L 139 Potassium (3.5-5.1) mmol/L 3.5 Chloride (98-107) mmol/L 105 Carbon Dioxide (21.0-32.0) mmol/L 23.7 Anion Gap (3-11) mmol/L 10.3 BUN (7-18) mg/dL 12 Creatinine (0.55-1.02) mg/dL 1.0 Est GFR (CKD-EPI 2020) (mL/min/1.73m2) 63.70 Glucose (74-106) mg/dL 118 H Calcium (8.5-10.1) mg/dL 8.8 Total Bilirubin (0.2-1.0) mg/dL 0.32 AST (15-37) U/L 16 ALT (14-59) U/L 23 Alkaline Phosphatase (46-116) U/L 79 Total Protein (6.4-8.2) g/dL 7.1 Albumin (3.4-5.0) g/dL 3.4 ABO/Rh O Positive Antibody Screen NEGATIVE Medical Decision Making 63-year-old male transitioning to female presenting with report of penetrating injury to left orbit after fall from 1-2 steps. Tetanus was updated 04/07/2023 as confirmed in our system. After initial assessment, 1 g of ceftriaxone was administered secondary to penetrating trauma. Extraocular muscles were deferred given trauma. CT orbit and facial bones with CT head and cervical spine were ordered, evidence of inferior orbital fracture. Gas in the tissue, no proptosis or evidence of hematoma, repeat ophthalmological assessment with pupils equal round and visual acuity preserved. No evidence of developing retro-orbital hematoma. GCS is maintained. Patient was not kept in a collar after cervical spine was read by our in-house radiologist that she does not have tenderness and is fully alert and oriented and I have low suspicion that she has C-spine trauma. Chest x-ray and pelvis were ordered which do not show evidence of acute abnormality and there is no additional visible evidence of trauma aside from some mild bruising to her left hand. After reviewing the films with Dr. Morel our radiologist, I did call Dr. Hubbard, trauma surgeon at [facility] and she is excepted patient to the emergency department as a trauma alert for ophthalmologic involvement. Patient is received ceftriaxone, her tetanus is up-to-date last year, and her GCS and exam remain consistent. She is agreeable to transfer at this time, will remain n.p.o., follow-up Quality:SDOH Health Related Social Needs: Health related social needs details N/A Critical Care Time Critical Care Time Attestation: 35 minutes of critical care time secondary to penetrating 40 foreign body into left orbit, risk of exsanguination, loss of vision, intracranial involvement, infection, observed on telemetry monitoring, diagnostic imaging interpretation review, discussion with on-call radiologist via phone, interpretation of labs, consultation with tertiary care center trauma surgeon who is excepted patient to their service, initiation of antibiotics PFSH All Active Problems (Updated 04/08/24 @ 22:34 by ADAN Moreno) Trauma (Acute) Foreign body behind the eye (Acute) Anxiety (Chronic) Knee pain, left (Acute) Increased body mass index (BMI) (Acute) Loud snoring (Acute) Fatigue (Acute) Memory changes (Acute) Hyperlipidemia (Acute) Colorectal polyps (Acute ~08/16/18) S/P colonoscopy (Acute ~08/16/18) Depression (Chronic) Vitamin B 12 deficiency (Acute 01/26/14) Migraine (Chronic) visual aura Hearing loss (Chronic 01/26/14) R>L Gender identity disorder (Chronic 07/19/13) 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 Father , 74 Diabetes Essential hypertension Neoplasm SYSTEMIC Stroke During surgery for AAA Brother No problems noted. Maternal Grandfather , 84 Essential hypertension Heart disease Paternal Grandfather Lung cancer Maternal Grandmother , 76 Heart disease Paternal Grandmother Heart disease ?? Son Asthma Maternal Aunt Neoplasm Asthma Social History Smoking/Tobacco Use Status: Never Second Hand Exposure: Yes Smoking risk assessment performed?: Yes Alcohol Intake: current Alcohol Intake frequency: holidays/special occasions only Alcohol type: wine Drug use: Never Substance use type: does not use Caregiver/Support person: No Household members: none Communication Needs: None Do you need help understanding health information?: Rarely current occupation: CAREGIVER Pets and animals: Yes Pets and animals: cat(s) Sexually active: No Do you think of yourself as: lesbian/horne/homosexual Current gender identity: female What is your relationship status?: How often do you talk on the phone with friends or family?: decline to answer How often do you get together with friends or relatives?: decline to answer How often do you attend mormon or holiness services?: decline to answer Do you belong to any clubs or organized social groups?: decline to answer Panel score (0-1 are the most socially isolated patients): 0 What type of physical activity do you participate in: walking Duration: < 15 minutes/day Frequency: 3-4 times per week Saskia/Hindu: Other Special saskia needs: No Seatbelt use: always Helmet use: Yes Helmet use: never Drive intox or ride w/intox driver education road instructor: No Do you feel safe at home: Yes Do you feel safe in your relationship?: Yes
[2024-04-08] MEDS: LORazepam 2 MG/ML VIAL 0.5 MG IVP (20:52)
== END 2024-04-08 21:22 | disposition short-term general hospital (02) ==
LOC: ER 19:39
PROVIDERS: Emergency Provider Physician Assistant; PCP Nurse Practitioner Family
DX: S02.32XA Fracture of orbital floor, left side, initial encounter for closed fracture (principal); S05.42XA Penetrating wound of orbit with or without foreign body, left eye, initial encounter; S60.222A Contusion of left hand, initial encounter; W44.B9XA Other plastic object entering into or through a natural orifice, initial encounter; Y93.89 Activity, other specified; Y92.89 Other specified places as the place of occurrence of the external cause; Z18.2 Retained plastic fragments
CPT/HCPCS: 36415; 80053; 86850; 86900; 86901; 96365; 96375; 99285; 70450; 70480; 70486; 71045; 72125; 72170; 85025; J0696; J2060

== ENCOUNTER 2024-09-20 01:35 | Outpatient (CLI) | payer MEDICAID, SELFPAY ==
--- NOTE | 2024-09-20 08:30 | DI.MAMMO_ITS ---
Exam(s) MAMMO SCREENING EXAM: MAMMO SCREENING CLINICAL HISTORY: screening, Z12.39. TECHNIQUE: Bilateral full field digital CC and MLO mammographic images were obtained with 3D tomosynthesis and utilizing computer aided detection (CAD). COMPARISON: Prior mammograms were reviewed. FINDINGS: There has been no significant change in the appearance and distribution of the fibroglandular tissue. There are no new focal findings in the immediate vicinity of a biopsy marker clip in the posterior aspect of the right breast. There are no new spiculated masses nor malignant appearing microcalcification groups. There is no significant architectural distortion nor skin thickening-retraction. IMPRESSION: No radiographic evidence of malignancy. BI-RADS Category 1 - Negative Breast Density - Category C - The breast are heterogeneously dense, which may obscure small masses. Breast density Category C or D implies that the patient has dense breast tissue. Dense breast tissue can make it harder to find cancer on a mammogram. Dense breast tissue is also associated with an increased risk of breast cancer. This information about the result of the mammogram report was provided to the patient to raise their awareness. Use this report when you speak with the patient about their risks for breast cancer, which includes their family history. At that time, you may recommend additional screening tests (Ultrasound or MRI) as these tests may add significant information. A negative radiographic report should not delay biopsy if a dominant or clinically suspicious mass is present. Up to ten percent of cancers are not identified on mammography. A negative report may reinforce clinical impression. Adenosis and dense breasts may obscure an underlying neoplasm. False positive reports average 6 to 10%. Patient will receive a letter notifying them of these results.
== END 2024-09-20 01:55 ==
LOC: DI 01:36
PROVIDERS: PCP Nurse Practitioner Family; Visit Provider Nurse Practitioner Family
DX: Z12.31 Encounter for screening mammogram for malignant neoplasm of breast (principal); R92.333 Mammographic heterogeneous density, bilateral breasts
CPT/HCPCS: 77063; 77067